=== PATIENT | male | born 1990 | race Caucasian/White ===

== ENCOUNTER 2018-05-29 20:40 | Emergency (ER) | payer OTHER ==
[~2018-05-29] VITALS: Ht 185.4 cm; Wt 149.9 kg
[2018-05-29 20:44] VITALS: Ht 185.4 cm; Wt 149.9 kg
[2018-05-29] MEDS ORDERED: KETOROLAC 60 MG INJ IM STA (23:14)
--- NOTE | 2018-05-29 23:26 | ERD ---
ER Documentation Chief Complaint Chief Complaint fever, cough/congestion, sorethroat x 2 days HPI 27-year-old male presents with history of sore throat, body aches, fever, cough, for 2 days. In addition patient states that he is having some pain when he swallows as well as some pain in the left submandibular part of his neck. Denies drooling, trismus, wheezing, dyspnea, shortness of breath. History of hypertension. Denies allergies. Denies medications. Denies surgeries. Denies alcohol, tobacco, drug use. Up to date on vaccines. ROS All systems reviewed and are negative except as per history of present illness. Medications Home Meds Active Scripts Ibuprofen* (Motrin*) 600 Mg Tab, 600 MG PO Q6H PRN for PAIN AND OR ELEVATED TEMP, #30 TAB Prov:JOSE MCKENNA 05/30/18 Penicillin V Potassium* (Penicillin V K*) 500 Mg Tab, 500 MG PO TID for strep throat for 10 Days, #30 TAB Prov:JOSE MKCENNA 05/30/18 Oseltamivir Phosphate* (Tamiflu*) 75 Mg Capsule, 75 MG PO BID for flu for 5 Days, CAP Prov:JOSE MCKENNA 05/30/18 Allergies Allergies: Coded Allergies: No Known Allergy (Unverified , 05/29/18) PMhx/Soc Medical and Surgical Hx: pt denies Medical Hx, pt denies Surgical Hx Hx Alcohol Use: No Hx Substance Use: No Hx Tobacco Use: No Smoking Status: Never smoker FmHx Family History: No diabetes, No coronary disease, No other Physical Exam Vitals Vital Signs Date Temp Pulse Resp B/P (MAP) Pulse Ox O2 O2 Flow FiO2 Time Delivery Rate 05/29/18 102.8 116 18 137/86 97 20:44 (103) Physical Exam Const: No acute distress Head: Atraumatic Eyes: Normal Conjunctiva ENT: Normal External Ears, Nose and Mouth. Tonsils are nonerythematous or edematous without exudates bilaterally. Uvula is midline. No peritonsillar masses noted. Neck: Full range of motion. No meningismus. Small mobile node noted in the submandibular area. Mildly tender to palpation. No fluctuance or erythema noted. Resp: Clear to auscultation bilaterally Cardio: Regular rate and rhythm, no murmurs Ext: No cyanosis, or edema Neur: Awake and alert Psych: Normal Mood and Affect Results 24 hrs Current Medications Medications Dose Sig/Lukas Start Time Status Last (Trade) Ordered Route PRN Stop Time Admin Dose Reason Admin Ketorolac 60 mg ONCE STAT 05/29/18 DC 05/29/18 Tromethamine IM 23:14 05/29/18 23:36 (Toradol) 23:16 Procedures/MDM 27-year-old male presents with history of sore throat, body aches, fever, cough, for 2 days. In addition patient states that he is having some pain when he swallows as well as some pain in the left submandibular part of his neck. Denies drooling, trismus, wheezing, dyspnea, shortness of breath. Rapid strep and influenza performed. Both were positive. Patient given Rx for Tamiflu as well as penicillin. I have low suspicion for epiglottitis, peritonsilar abscess, ludwigs angina, retropharyngeal abscess, or other emergent etiologies based on patients exam and history. I have low suspicion for bacterial sinusitis, pneumonia, tuberculosis, meningitis, pneumothorax, PE, aspirated foreign body, respiratory distress, acute heart failure or other life threatening etiology based on patient history and exam findings. Patient advised to rest and stay well hydrated. Patient discharged with strict ER precautions. Patient advised to follow up with PMD. All questions answered at discharge. Patient discharged with strict ER precautions. Patient advised to follow up with PMD. All questions answered at discharge. Departure Diagnosis: Primary Impression: Strep pharyngitis Additional Impression: Influenza Condition: Stable JOSE MCKENNA May 29, 2018 23:26
[2018-05-30] MEDS ORDERED: PENI500T PO (00:53)
[2018-05-30] MEDS ORDERED: OSEL75CA23 PO (00:53)
[2018-05-30] MEDS ORDERED: IBUP-1542 PO (00:53)
[2018-05-30 01:05] VITALS: BP 141/71; PULSE 91; RESP 22
== END 2018-05-30 01:07 | disposition home or self-care (01) ==
LOC: FTE 20:40
DX: J10.1 Influenza due to other identified influenza virus with other respiratory manifestations (principal)
CPT/HCPCS: 87400; 87880; 96372; J1885; Z7502